=== PATIENT | male | born 1980 | race Caucasian/White ===

== ENCOUNTER 2023-07-24 20:34 | Emergency (ER) | payer BC ==
[2023-07-24] MEDS: Sodium Chloride 0.9% 10 ML Syringe FLUSH PRN (21:45)
[2023-07-24] MEDS: HYDROmorphone 1 MG/ML Syringe IVPUSH ONE (21:46)
[2023-07-24] MEDS: Dexamethasone 4 MG/ML 5 ML MDV IV ONE (21:46)
[2023-07-24] MEDS: Metoclopramide 10 MG/2 ML SDV IVPUSH ONE (21:46)
[2023-07-24] MEDS: Levofloxacin/Dextrose 5%-Water 750 MG in Premix Bag 1 BAG IV ONE (21:47)
[2023-07-24 22:55] LABS: APPEARANCE,URINE CLEAR (Clear); BILIRUBIN,URINE NEGATIVE (Negative); COLOR,URINE YELLOW (Yellow); GLUCOSE,URINE NEGATIVE (Negative); KETONES,URINE NEGATIVE (Negative); LEUKOCYTE ESTERASE,URINE NEGATIVE (Negative); NITRITE,URINE NEGATIVE (Negative); OCCULT BLOOD,URINE NEGATIVE (Negative); PH,URINE 6.5 (5.0-8.0); PROTEIN,URINE NEGATIVE (Negative); UROBILINOGEN,URINE 0.2 (0.2-1.0)
[2023-07-24 23:11] LABS: BACTERIA,URINE NOT SEEN /hpf (FEW); EPITHELIAL CELLS,URINE NOT SEEN /hpf (0-5); MUCUS,URINE NOT SEEN /hpf (FEW); RBC,URINE NOT SEEN /hpf (0-5); WBC,URINE 0-5 /hpf (0-5)
== END 2023-07-25 00:05 | disposition home or self-care (01) ==
LOC: JD.ED 20:34
DX: N45.1 Epididymitis (principal); N41.0 Acute prostatitis; F17.210 Nicotine dependence, cigarettes, uncomplicated; Z88.6 Allergy status to analgesic agent
CPT/HCPCS: 74176; 76870; 81001; 93975; 96365; 96375; 99284; J1100; J1170; J1956; J2765; J3490